=== PATIENT | male | born 1960 | race African-American/Black ===

== ENCOUNTER 2016-04-11 06:41 | Emergency (ER) ==
[2016-04-11 06:49] VITALS: BP 150/99
[2016-04-11] MEDS ORDERED: ZOFRAN ODT PO ONE (07:36)
[2016-04-11] MEDS ORDERED: DILAUDID IM ONE (07:39)
--- NOTE | 2016-04-11 08:35 | PROVIDER DOCUMENTATION ---
HPI-Musculoskeletal Pain/Inj - GENERAL Chief Complaint: Post Op Complaint Stated Complaint: POST OP PAIN Time Seen by Provider: 04/11/16 07:20 Source: patient - HX OF PRESENT ILLNESS-MUSKULOSKELTAL Nature of Presenting Problem: 56 yo vet underwent tendon transfer at [facility] yesterday. He has had quite a bit of post op bleeding and unbearable in hand. Quality of Pain: reports: dull, tightness Severity in ED: severe Onset/Duration: 24 hours ago Timing: still present Modifying Factors: improves with: nothing Any recent injury?: No Similar Symptoms Previously?: No Recently seen or treated by another doctor?: Yes ([facility] yesterday) - FALL INJURY Location of Pain/Injury: reports: hand(s) Pain Radiation: reports: no radiation Review of Systems - Adult - REVIEW OF SYSTEMS - ADULT Constitutional: reports: no symptoms reported, see HPI Eyes: reports: no symptoms reported Ears, Nose, Mouth & Throat: reports: no symptoms reported Cardiovascular: reports: no symptoms reported Respiratory: reports: no symptoms reported Gastrointestinal: reports: no symptoms reported Genitourinary: reports: no symptoms reported Musculoskeletal: reports: no symptoms reported Integumentary: reports: no symptoms reported Neurological: reports: no symptoms reported Psychiatric: reports: no symptoms reported Endocrine: reports: no symptoms reported Hematologic/Lymphatic: reports: no symptoms reported Allergic/Immunologic: reports: no symptoms reported All Other Systems: Reviewed and Negative Past History - Adult - PAST MEDICAL HISTORY-ADULT Review of Records: reports: Old Records Reviewed, Medications Reviewed, Social history reviewed & non-contributory. Cardiovascular: reports: HTN Physical Exam-Injury Related - Physical Exam-Injury Related Initial Vital Signs Reviewed: Yes General Appearance: appears well, alert, mild distress Eyes: PERRL/EOMI Head, Ears, Nose, Mouth & Throat: normocephalic/atraumatic Neck: full range of motion Respiratory: lungs clear Cardiovascular: normal peripheral pulses, regular rate, rhythm Abdominal Exam: non tender Extremity: normal range of motion, erythema (Dressing and splint removed with some improvement in level of pain. There is considerable swelling of dorsum of hand), swelling, tenderness Progress - PLAN OF CARE/RESULTS Progress/Plan/Lab Results: Orders Category Date Time Status Hydromorphone [Dilaudid] Med 04/11/16 07:39 Discontinued 1 mg IM NOW ONE Ondansetron Odt [Zofran Odt] Med 04/11/16 07:36 Discontinued 4 mg PO NOW ONE Vital Signs Temp Pulse Resp BP Pulse Ox 04/11/16 06:47 98.0 F 90 20 150/99 97 Departure - Departure Time of Disposition Order: 08:52 DIAGNOSIS: Post-op pain Post-op bleeding Qualifiers: Surgical complication system/body Area: skin Procedure type: non-dermatologic Qualified Code(s): L76.22 - Postprocedural hemorrhage of skin and subcutaneous tissue following other procedure Disposition: HOME 01 Certified Medical Emergency: Emergent Condition: Good Additional Instructions: ED Follow Up Instructions: You have been treated by a care provider in the Emergency Department. These instructions are being provided to you so you can have an understanding of how to care for yourself upon discharge. Upon discharge from the Emergency Department, you are responsible for making arrangements for follow-up care by a physician of your choice. Take all prescribed medications as directed. Return to the Emergency Department immediately for any new or worsening symptoms. You may call the Physician Referral phone number at [phone] to obtain a list of Physicians who are taking new patients. Prescriptions: Oxycodone HCl/Acetaminophen [Percocet 10-325 mg Tablet] 1 each PO Q4-6H PRN PRN #20 tablet PRN Reason: Pain Referrals: None,PCP [Primary Care Provider] -
== END 2016-04-11 09:21 | disposition home or self-care (01) ==
LOC: ED 06:41
DX: G89.18 Other acute postprocedural pain (principal); L76.22 Postprocedural hemorrhage of skin and subcutaneous tissue following other procedure; M79.641 Pain in right hand; L53.9 Erythematous condition, unspecified; I10 Essential (primary) hypertension; Z98.890 Other specified postprocedural states
CPT/HCPCS: 96372; J1170